=== PATIENT | female | born 1990 | race American Indian/Alaskan Native ===

== ENCOUNTER 2018-06-09 06:48 | Emergency (ER) | payer MEDICAID ==
[2018-06-09 07:02] VITALS: BP 140/98
--- NOTE | 2018-06-09 08:59 | Emergency Department Report ---
ED Chest Pain HPI - General Chief Complaint: Chest Pain Stated Complaint: BAD DRUGS GHADA Time Seen by Provider: 06/09/18 08:30 Source: patient Mode of arrival: Ambulatory Limitations: No Limitations - History of Present Illness Initial Comments: 28-year-old female, 16 weeks , presents to ED with onset of chest tightness after snorting cocaine approximately 4 hours ago. Patient also reports associated shortness of breath and feeling of anxiety. Patient states this was her first time using cocaine. She also states that she has an appointment for elective in 3 days. Patient denies abdominal pain, vaginal bleeding. MD Complaint: chest pain -: hour(s) (4) Onset: associated with drug use (cocaine) Pain Location: substernal Pain Radiation: none Severity: mild Quality: tightness Consistency: intermittent Improves With: nothing Worsens With: nothing re: dyspnea. denies: nausea, vomting, diaphoresis - Related Data Home Medications Medication Instructions Recorded Confirmed Last Taken No Known Home Medications [No 01/29/13 01/29/13 Unknown Reported Home Medications] Allergies Allergy/AdvReac Type Severity Reaction Status Date / Time No Known Allergies Allergy Unverified 01/29/13 18:01 Heart Score - HEART Score History: Slightly suspicious EKG: Non-specific Age: < 45 Risk factors: No known risk factors Troponin: < normal limit HEART Score: 1 ED Review of Systems ROS: Stated complaint: BAD DRUGS GHADA Other details as noted in HPI Comment: All other systems reviewed and negative Constitutional: denies: chills, fever Respiratory: shortness of breath Cardiovascular: chest pain Gastrointestinal: denies: abdominal pain, nausea, vomiting ED Past Medical Hx - Past Medical History Previous Medical History?: No Hx GERD: Yes - Surgical History Past Surgical History?: No - Social History Smoking Status: Never Smoker Substance Use Type: Alcohol, Cocaine - Medications Home Medications: Home Medications Medication Instructions Recorded Confirmed Last Taken Type No Known Home Medications [No 01/29/13 01/29/13 Unknown History Reported Home Medications] ED Physical Exam - General Limitations: No Limitations General appearance: alert, in no apparent distress - Head Head exam: Present: atraumatic, normocephalic - Eye Eye exam: Present: normal appearance - ENT ENT exam: Present: mucous membranes moist - Neck Neck exam: Present: normal inspection - Respiratory Respiratory exam: Present: normal lung sounds bilaterally. Absent: respiratory distress - Cardiovascular Cardiovascular Exam: Present: regular rate, normal rhythm - GI/Abdominal GI/Abdominal exam: Present: soft. Absent: distended, tenderness - Extremities Exam Extremities exam: Present: normal inspection - Neurological Exam Neurological exam: Present: alert, oriented X3 - Psychiatric Psychiatric exam: Present: normal affect, normal mood - Skin Skin exam: Present: warm, dry, intact, normal color ED Course Vital Signs 06/09/18 06:57 Temperature 98.1 F Pulse Rate 81 Respiratory 18 Rate Blood Pressure 140/98 O2 Sat by Pulse 99 Oximetry - Reevaluation(s) Reevaluation #1: 06/09/18 10:10 Pt feeling much better, asleep in chair. Informed her that we will obtain 2nd troponin in 2 hrs. ED Medical Decision Making - Lab Data Result diagrams: 06/09/18 08:57 06/09/18 08:57 - EKG Data -: EKG Interpreted by Me EKG shows normal: sinus rhythm, axis, intervals, QRS complexes Rate: normal - EKG Data When compared to previous EKG there are: no significant change (compared to 2012) Interpretation: other (T wave inversions anteriorly) - Radiology Data Radiology results: report reviewed - Medical Decision Making - pt eloped - 2nd troponin not drawn - EKG unchanged from 6 yrs ago - 1st troponin nml - heart tones normal, pt reports has appt for in 3 days - pt reported resolution of chest pain - Differential Diagnosis ACS, chest wall pain, anxiety Critical care attestation.: If time is entered above; I have spent that time in minutes in the direct care of this critically ill patient, excluding procedure time. ED Disposition Clinical Impression: Chest pain, Cocaine abuse, 16 weeks gestation of Disposition: Z-07 ELOPED Is pt being admited?: No Condition: Stable Instructions: Chest Pain (ED) Referrals: POLI LEIVA MD [Primary Care Provider] - 3-5 Days Time of Disposition: 12:47
--- NOTE | 2018-06-09 09:29 | XRay Report ---
ROUTINE CHEST, TWO VIEWS: HISTORY: chest pain. The trachea, heart, mediastinal contour, lung cervantes and bony thorax are unremarkable. IMPRESSION: Unremarkable chest x-ray.
[2018-06-09 09:37] LABS: BUN/Creatinine Ratio 23; Blood Urea Nitrogen 9 mg/dL (7-17); Calcium 9.1 mg/dL (8.4-10.2); Hemolysis Index 0
[2018-06-09 09:38] LABS: Basophils # (Auto) 0.1 K/mm3 (0.0-0.1); Basophils % (Auto) 0.6 % (0.0-1.8); Eosinophils # (Auto) 0.1 K/mm3 (0.0-0.4); Hemoglobin 10.9 gm/dl (10.1-14.3); Lymphocytes # (Auto) 2.2 K/mm3 (1.2-5.4); Lymphocytes % (Auto) 18.6 % (13.4-35.0); Mean Corpuscular HGB Conc 34 % (30-34); Mean Corpuscular Volume 88 fl (79-97); Monocytes # (Auto) 0.5 K/mm3 (0.0-0.8); Monocytes % (Auto) 4.5 % (0.0-7.3); Platelet Count 313 K/mm3 (140-440); Red Blood Count 3.64 M/mm3 (3.65-5.03); Red Cell Distribution Width 13.3 % (13.2-15.2)
[2018-06-09 09:56] LABS: Partial Thromboplastin Time 30.1 Sec. (24.2-36.6)
[2018-06-09 12:17] LABS: Bilirubin,Urine NEG (Negative); Blood,Urine NEG (Negative); Color,Urine Straw (Yellow); Protein,Urine <15 mg/dL mg/dL (Negative); Urobilinogen,Urine < 2.0 mg/dL (<2.0)
== END 2018-06-09 12:49 | disposition left against medical advice (07) ==
LOC: ED 06:48
DX: O26.892 Other specified pregnancy related conditions, second trimester (principal); R07.9 Chest pain, unspecified; F41.9 Anxiety disorder, unspecified; K21.9 Gastro-esophageal reflux disease without esophagitis; F14.10 Cocaine abuse, uncomplicated; Z3A.16 16 weeks gestation of pregnancy
CPT/HCPCS: 36415; 71046; 80048; 81001; 84484; 84702; 85025; 85610; 85730; 93005; 93010